=== PATIENT | female | born 1985 | race Caucasian/White ===

== ENCOUNTER → 2016-10-09 | Outpatient (CLI) | payer BC ==
[2016-10-09 10:36] LABS: HEMOGLOBIN 12.5 gm/dl (12.3-15.3); RED BLOOD COUNT 4.25 M/UL (4.00-5.10); WHITE BLOOD COUNT 4.7 K/UL (4.5-11.0)
[2016-10-09 10:43] LABS: BUN/CREATININE RATIO 26 (0-10)
== END ==
LOC: LAB 10:03 → OPSV 10:03
PROVIDERS: Family Medicine
DX: R07.2 Precordial pain (principal)
CPT/HCPCS: 36415; 80053; 84443; 85025

== ENCOUNTER → 2016-11-10 | Outpatient (CLI) | payer BC | LOC: RAD 10-22 09:30 | DX: R12 Heartburn (principal); K21.9 Gastro-esophageal reflux disease without esophagitis | CPT/HCPCS: 74246 ==

== ENCOUNTER 2016-11-11 16:46 | Emergency (ER) | payer OTHER, BC | END 2016-11-11 18:17 | disposition home or self-care (01) | LOC: ER1 16:46 | DX: S80.02XA Contusion of left knee, initial encounter (principal); S70.02XA Contusion of left hip, initial encounter; V49.40XA Driver injured in collision with unspecified motor vehicles in traffic accident, initial encounter; Y93.89 Activity, other specified; Y92.410 Unspecified street and highway as the place of occurrence of the external cause; Y99.2 Volunteer activity | CPT/HCPCS: 99284 ==